=== PATIENT | male | born 1970 | race Caucasian/White ===

== ENCOUNTER 2022-03-01 08:00 | Day surgery (SDC) | payer OTHER ==
[2022-02-28 08:18] VITALS: BMI 32.0
[~2022-03-01 08:00] MED LIST: LACTATED RINGERS 1,000 ML IV SCH; LIDOCAINE 1% (10MG/ML) FOR IV START INTRADERMA PRN
[2022-03-01 08:31] VITALS: TEMP 97.8
[2022-03-01] MEDS ORDERED: PROPOFOL 10 MG/ML 20 ML VIAL IV ONE (08:50)
--- NOTE | 2022-03-01 09:06 | P.PCN ---
Date of Procedure: 03/01/22 Procedure(s) Performed: BRIEF HISTORY: Patient is a 51-year-old pleasant white male scheduled for an elective colonoscopy as a part of evaluation of prior history of colon polyps. Last colonoscopy was 3 years ago. PROCEDURE PERFORMED: Colonoscopy with snare polypectomy. PREOPERATIVE DIAGNOSIS: History of colon polyps. IV sedation per Anesthesia. PROCEDURE: After informed consent was obtained, the patient, was brought into the endoscopy unit. IV sedation was administered by Anesthesia under continuous monitoring. Digital rectal examination was normal. Initially the Olympus CF-160 flexible video colonoscope was then inserted in the rectum, gradually advanced into the cecum without any difficulty. Careful examination was performed as the scope was gradually being withdrawn. Ileocecal valve and the appendiceal orifice were visualized and appeared normal. Prep was excellent. Mucosa of the cecum appeared normal. In the Ascending colon there was a 7 mm polyp that was removed by snare polypectomy. In the hepatic flexure there was a 1 cm flat polyp removed by snare polypectomy., Transverse colon there was a 5 mm sessile polyp removed by snare polypectomy. Rest of the ascending colon, transverse colon, descending colon, sigmoid colon, and rectum appeared normal. In the sigmoid colon there was a 3 mm polyp removed by snare polypectomy. Retroflexion was performed in the rectum and no lesions were seen. The patient tolerated the procedure well. IMPRESSION: 7 mm ascending colon polyp status post polypectomy 1 cm flat hepatic flexure polyp status post polypectomy 5 mm transverse colon polyp status post polypectomy 3 mm sigmoid: Polyp status post snare polypectomy. RECOMMENDATIONS: Findings of this examination were discussed with the patient is well as his family.. He was advised to follow with the biopsy results. If the biopsy results adenoma he can have a repeat colonoscopy in 3 years
[2022-03-01 09:27] VITALS: RESP 18
[2022-03-01 09:41] VITALS: BP 100/60; PULSE 58
== END 2022-03-01 09:48 | disposition home or self-care (01) ==
LOC: ORWHC2ENDO 08:00
PROVIDERS: ATTEND Internal Medicine Gastroenterology
DX: D12.2 Benign neoplasm of ascending colon (principal); D12.3 Benign neoplasm of transverse colon; D12.5 Benign neoplasm of sigmoid colon; Z86.010 Personal history of colon polyps
CPT/HCPCS: 45385; 88305; J2704

== ENCOUNTER → 2023-08-07 | Outpatient (CLI) | payer OTHER ==
--- NOTE | 2023-08-07 10:54 | US ---
EXAMINATION TYPE: US abdomen complete DATE OF EXAM: 08/07/2023 COMPARISON: NONE CLINICAL INDICATION: Male, 53 years old with history of R10.11 RIGHT UPPER QUADRANT PAIN; RUQ pain x 4/5 years but has been more frequent. TECHNIQUE: Multiple sonographic images of the abdomen are obtained. FINDINGS: EXAM MEASUREMENTS: Liver Length: 17.1 cm Gallbladder Wall: 0.2 cm CHD: 0.4 cm Spleen: 10.0 cm Right Kidney: 8.9 x 4.8 x 4.7 cm Left Kidney: 10.7 x 5.3 x 5.7 cm LABORATORY ANALYST NOTES: Suboptimal due to overlying bowel gas Pancreas: Head and tail obscured by overlying bowel gas Liver: wnl Gallbladder: Enlarged in size= 11.7 cm. Echogenic focus with shadowing = 2.2 cm Evidence for sonographic Mabry's sign: neg CBD: Obscured by overlying bowel gas CHD: wnl Spleen: wnl Right Kidney: limited due to bowel gas, no prominent masses or lesions seen Left Kidney: limited due to bowel gas, no prominent masses or lesions seen Upper IVC: wnl Abd Aorta: Mid obscured by overlying bowel gas The liver is homogenous. The intrahepatic portion of the IVC and proximal abdominal aorta are within normal limits. There is evidence of cholelithiasis. Common bile duct is unremarkable. The visualiz ed portions of the pancreas are homogenous. The spleen is unremarkable. Kidneys are symmetric and f ree of hydronephrosis. No renal lesions are seen. IMPRESSION: Cholelithiasis without evidence of acute process.
== END | disposition home or self-care (01) ==
LOC: RADUSWWP 10:00
PROVIDERS: ATTEND Family Medicine
DX: K80.20 Calculus of gallbladder without cholecystitis without obstruction (principal); R10.11 Right upper quadrant pain
CPT/HCPCS: 76700